=== PATIENT | male | born 1985 | race Caucasian/White ===

== ENCOUNTER 2025-01-30 11:40 | Emergency (ER) | payer OTHER, SELFPAY ==
[2025-01-30 11:44] VITALS: BP 141/98
[2025-01-30] MEDS: KEFLEX 500 MG PO (12:53)
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
[2025-01-30 12:57] VITALS: BMI 24.3
== END 2025-01-30 14:21 | disposition home or self-care (01) ==
LOC: EMR 11:40
PROVIDERS: EMERGENCY PHYSICIAN Emergency Medicine; FAMILY PHYSICIAN Family Medicine
DX: S51.811A Laceration without foreign body of right forearm, initial encounter (principal); V89.2XXA Person injured in unspecified motor-vehicle accident, traffic, initial encounter; Y92.410 Unspecified street and highway as the place of occurrence of the external cause; Y93.55 Activity, bike riding
CPT/HCPCS: 99283; 12002; 73080; 90715; 99282